=== PATIENT | male | born 1995 | race African-American/Black ===

== ENCOUNTER 2017-01-20 10:44 | Emergency (ER) | payer OTHER ==
[~2017-01-20] VITALS: Ht 170.2 cm; Wt 72.0 kg
[2017-01-20 10:55] VITALS: BP 132/77; PULSE 75; RESP 16; TEMP 98.6; O2SAT 100
--- NOTE | 2017-01-20 11:07 | PD ---
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 Time Seen by Provider: 10:55 Travel History International Travel<30 days: No Contact w/Intl Traveler<30days: No History of Present Illness HPI [employer] BRING PATIENT A ALCOCER ACT, FAMILY CALLED POLICE CONCERNED ABOUT BEHAVIOR SPECIALLY SINCE NOT TAKING HIS "ANXIETY MEDICATIONS", WHEN POLICE ARRIVED PATIENT MADE COMMENTS ABOUT "JUST SHOOT ME" AND "KILL ME" BROUGHT FOR CLEARANCE [facility] Social History Tobacco Use: No Review of Systems ROS Limitations: Combative, Other: (PATIENT WAS APPARENTLY COMBATIVE AT HOME, THOUGH NOT PRESENTLY BUT HE IS FLANKED BY SEVERAL [employer]) Except as stated in HPI: all other systems reviewed are Neg Physical Exam Narrative GENERAL: SKIN: Warm and dry. HEAD: Atraumatic. Normocephalic. EYES: Pupils equal and round. No scleral icterus. No injection or drainage. ENT: No nasal bleeding or discharge. Mucous membranes pink and moist. NECK: Trachea midline. No JVD. CARDIOVASCULAR: Regular rate and rhythm. RESPIRATORY: No accessory muscle use. Clear to auscultation. Breath sounds equal bilaterally. GASTROINTESTINAL: Abdomen soft, non-tender, nondistended. Hepatic and splenic margins not palpable. MUSCULOSKELETAL: Extremities without clubbing, cyanosis, or edema. No obvious deformities. NEUROLOGICAL: Awake and alert. No obvious cranial nerve deficits. Motor grossly within normal limits. Five out of 5 muscle strength in the arms and legs. Normal speech. PSYCHIATRIC: Appropriate mood and affect, CARLYN ACTED BY [employer] Data Data Last Documented VS Vital Signs Date Time Temp Pulse Resp B/P Pulse Ox O2 Delivery O2 Flow Rate FiO2 01/20/17 10:55 98.6 75 16 132/77 100 Orders Complete Blood Count With Diff (01/20/17 10:55) Comprehensive Metabolic Panel (01/20/17 10:55) Electrocardiogram (01/20/17 10:55) Psych Screen (01/20/17 10:55) Drug Screen, Random Urine (01/20/17 10:55) Alcohol (Ethanol) (01/20/17 10:55) Salicylates (Aspirin) (01/20/17 10:55) Tylenol (Acetaminophen) (01/20/17 10:55) Labs Laboratory Tests Test 01/20/17 11:05 White Blood Count 4.5 TH/MM3 Red Blood Count 4.96 MIL/MM3 Hemoglobin 15.3 GM/DL Hematocrit 44.5 % Mean Corpuscular Volume 89.7 FL Mean Corpuscular Hemoglobin 30.7 PG Mean Corpuscular Hemoglobin 34.3 % Concent Red Cell Distribution Width 12.8 % Platelet Count 249 TH/MM3 Mean Platelet Volume 8.3 FL Neutrophils (%) (Auto) 47.5 % Lymphocytes (%) (Auto) 38.7 % Monocytes (%) (Auto) 8.2 % Eosinophils (%) (Auto) 4.5 % Basophils (%) (Auto) 1.1 % Neutrophils # (Auto) 2.1 TH/MM3 Lymphocytes # (Auto) 1.7 TH/MM3 Monocytes # (Auto) 0.4 TH/MM3 Eosinophils # (Auto) 0.2 TH/MM3 Basophils # (Auto) 0.0 TH/MM3 CBC Comment DIFF FINAL Differential Comment Sodium Level 139 MEQ/L Potassium Level 3.5 MEQ/L Chloride Level 103 MEQ/L Carbon Dioxide Level 24.6 MEQ/L Anion Gap 11 MEQ/L Blood Urea Nitrogen 9 MG/DL Creatinine 1.20 MG/DL Estimat Glomerular Filtration 94 ML/MIN Rate Random Glucose 76 MG/DL Calcium Level 9.4 MG/DL Total Bilirubin 0.5 MG/DL Aspartate Amino Transf 24 U/L (AST/SGOT) Alanine Aminotransferase 32 U/L (ALT/SGPT) Alkaline Phosphatase 80 U/L Total Protein 7.7 GM/DL Albumin 4.1 GM/DL Salicylates Level LESS THAN 1.7 MG/DL Acetaminophen Level LESS THAN 2.0 MCG/ML Ethyl Alcohol Level LESS THAN 3 MG/DL MDM Medical Decision Making Medical Screen Exam Complete: Yes Emergency Medical Condition: Yes Medical Record Reviewed: Yes Interpretation(s) NSR @72, SCOTTIE, LVH VS THIN CHEST, NO HYPERACUTE T WAVES, NO STEMI PATTERN Differential Diagnosis MEDICAL CLEARANCE Narrative Course PATIENT HAS NO COMPLAINT, WILL PERFORM CLEARANCE AND WILL CLEAR IF LABS WNL Diagnosis Primary Impression: Medical clearance for psychiatric admission Condition: Stable Tae Armstrong MD January 20, 2017 11:06
[2017-01-20 11:29] LABS: AUTOMATED NEUTROPHIL # 2.1 TH/MM3 (1.8-7.7); BASOPHIL % 1.1 % (0.0-2.0); EOSINOPHIL # 0.2 TH/MM3 (0-0.4); EOSINOPHIL % 4.5 % (0.0-4.0); HEMATOCRIT 44.5 % (39.0-51.0); HEMO FLAGS DIFF FINAL; LYMPH % 38.7 % (9.0-44.0); LYMPHOCYTE # 1.7 TH/MM3 (1.0-4.8); MEAN CELL VOLUME 89.7 FL (80.0-100.0); MEAN CORPUSCULAR HEMOGLOBIN 30.7 PG (27.0-34.0); MEAN CORPUSCULAR HGB CONC 34.3 % (32.0-36.0); MONO % 8.2 % (0.0-8.0); NEUT % 47.5 % (16.0-70.0); PLATELET COUNT 249 TH/MM3 (150-450); RED BLOOD COUNT 4.96 MIL/MM3 (4.50-5.90); RED CELL DISTRIBUTION WIDTH 12.8 % (11.6-17.2); WHITE BLOOD COUNT 4.5 TH/MM3 (4.0-11.0)
[2017-01-20 11:48] LABS: ANION GAP 11 MEQ/L (5-15)
[2017-01-20 11:51] LABS: ACETAMINOPHEN LESS THAN 2.0 MCG/ML (10.0-30.0); ALKALINE PHOSPHATASE 80 U/L (45-117); ALT (GPT) 32 U/L (9-52); AST (GOT) 24 U/L (15-39); BICARBONATE 24.6 MEQ/L (21.0-32.0); BLOOD UREA NITROGEN 9 MG/DL (7-18); CHLORIDE 103 MEQ/L (98-107); GLOMERULAR FILTRATION RATE 94 ML/MIN (>89); POTASSIUM 3.5 MEQ/L (3.5-5.1); SODIUM (NA) 139 MEQ/L (136-145); TOTAL BILIRUBIN ADULT 0.5 MG/DL (0.2-1.0)
[2017-01-20 14:51] LABS: AMPHETAMINE, URINE NEG (NEG); BARBITURATES, URINE NEG (NEG); COCAINE, URINE NEG (NEG)
[2017-01-20 18:18] VITALS: BP 122/66; PULSE 70; RESP 16; O2SAT 100
[2017-01-20 22:00] VITALS: BP 114/57; PULSE 55; RESP 17; TEMP 98.7; O2SAT 100
[2017-01-21 02:33] VITALS: BP 105/54; PULSE 53; RESP 19; TEMP 98; O2SAT 100
[2017-01-21 06:26] VITALS: BP 110/49; PULSE 57; RESP 18; O2SAT 98
[2017-01-21 10:27] VITALS: BP 110/50; PULSE 57; TEMP 98.3
[2017-01-21 10:28] VITALS: BP 110/50; TEMP 98
--- NOTE | 2017-01-21 13:27 | PD.CONS ---
Provisional Diagnosis Admission Date [place] Adjustment disorder with disturbance of conduct History of Present Illness Service Psychiatry Consult Requested By Primary Care Physician No Primary Care Physician HPI The patient is a 21-year-old [place] man, homeless, single, unemployed, with psychiatric history of bipolar disorder, 1 previous psychiatric hospitalization in [facility], he is not on psychotropics, no outpatient care, 1 previous suicidal attempt, cannabis use disorder, no significant medical history , who was brought to the ER on the Zuniga act: "CYNTHIA WILLIAM BRING PATIENT A ZUNIGA ACT, FAMILY CALLED POLICE CONCERNED ABOUT BEHAVIOR SPECIALLY SINCE NOT TAKING HIS "ANXIETY MEDICATIONS", WHEN POLICE ARRIVED PATIENT MADE COMMENTS ABOUT "JUST SHOOT ME" AND "KILL ME" BROUGHT FOR CLEARANCE". On psychiatric evaluation today patient is calm, cooperative. Patient is concrete and seems to have a limited abstract thinking. However, he clarifies that he had a fight with his girlfriend and she wanted to kick he now of her house and called the police. He was furious and he expressed a suicidal statement under this condition. But, now he feels much better, he denies depression, he denies anxiety, he denies clovis, he denies psychosis, he denies suicidal and homicidal ideation. On longitudinal observation no aggressive behavior, no disorganized behavior, no agitation has been reported. Patient is planning to go back to his father's house. He reports daily use of cannabis, occasional use of alcohol. Review of Systems Constitutional: DENIES: Diaphoretic episodes, Fatigue, Fever, Weight gain, Weight loss, Chills, Dizziness, Change in appetite, Night Sweats Endocrine: DENIES: Heat/cold intolerance, Polydipsia, Polyuria, Polyphagia Eyes: DENIES: Blurred vision, Diplopia, Eye inflammation, Eye pain, Vision loss , Photosensitivity, Double Vision Ears, nose, mouth, throat: DENIES: Tinnitus, Hearing loss, Vertigo, Nasal discharge, Oral lesions, Throat pain, Hoarseness, Ear Pain, Running Nose, Epistaxis, Sinus Pain, Toothache, Odynophagia Respiratory: DENIES: Apneas, Cough, Snoring, Wheezing, Hemoptysis, Sputum production, Shortness of breath Cardiovascular: DENIES: Chest pain, Palpitations, Syncope, Dyspnea on Exertion , PND, Lower Extremity Edema, Orthopnea, Claudication Gastrointestinal: DENIES: Abdominal pain, Black stools, Bloody stools, Constipation, Diarrhea, Nausea, Vomiting, Difficulty Swallowing, Anorexia Genitourinary: DENIES: Sexual dysfunction, Urinary frequency, Urinary incontinence, Urgency, Hematuria, Dysuria, Nocturia, Penile Discharge, Testicular Pain, Testicular Swelling Musculoskeletal: DENIES: Joint pain, Muscle aches, Stiffness, Joint Swelling, Back pain, Neck pain Integumentary: DENIES: Abnormal pigmentation, Nail changes, Pruritus, Rash Hematologic/lymphatic: DENIES: Bruising, Lymphadenopathy Immunologic/allergic: DENIES: Eczema, Urticaria Neurologic: DENIES: Abnormal gait, Headache, Localized weakness, Paresthesias, Seizures, Speech Problems, Tremor, Poor Balance Psychiatric: DENIES: Anxiety, Confusion, Mood changes, Depression, Hallucinations, Agitation, Suicidal Ideation, Homicidal Ideation, Delusions Past Family Social History Family History Patient denies psychiatric family history Social History Patient was born and raised in [place], he was living with his girlfriend, but he is now homeless, unemployed, highest level of education is high school Patient's Strengths (min. 2) Verbal communication Physical Exam Physical exam, ideas, no withdrawal, no stiffness, no tremors, no psychomotor agitation or retardation Vital Signs Vital Signs Date Time Temp Pulse Resp B/P Pulse Ox O2 Delivery O2 Flow Rate FiO2 01/21/17 10:28 98.0 110/50 98 01/21/17 10:27 57 Room Air 01/21/17 06:26 18 Mental Status Examination Appearance -Americans young man, fair hygiene, disheveled, calm and cooperative Speech: Unremarkable Orientation: x3 Memory: Unremarkable Thought Process: Logical, Other (concrete) Thought Content: Unremarkable Hallucination Type: None Suicidal Ideation: No Previous Suicide Attempts: No Homicidal Ideation: No Previous Homicide Attempts: No Insight: Good Affect: Good Mood: Appropriate Motor Activity: Normal gait Assessment & Plan Problem List: (1) Adjustment disorder with disturbance of conduct Assessment & Plan: The patient does not present any objective or subjective symptomatology of depression, anxiety, clovis or psychosis. Patient denies suicidal or homicidal ideation, he denies visual and auditory hallucinations. Recent suicidal statements is to be secondary to frustration and anger and no to a primary psychiatric condition decompensation. 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 He does not meet criteria for psychiatric admission at this moment. Extensive psychoeducation, supportive motivation provided. Zuniga act will be lifted. ICD Code: F43.24 Assessment & Plan Estimated LOS: days Seth Segura MD January 21, 2017 13:27
--- NOTE | 2017-01-21 22:00 | EKG ---
Date Performed: 01/20/2017 Time Performed: 11:02:15 PTAGE: 21 years EKG: Sinus rhythm ST ELEVATION CONSISTENT WITH INJURY, PERICARDITIS, OR EARLY REPOLARIZATION ABNORMAL ECG NO PREVIOUS TRACING DOCTOR: Brandon Arteaga Interpretating Date/Time 01/21/2017 21:59:28
== END 2017-01-21 10:29 | disposition home or self-care (01) ==
LOC: NEPE 10:44 → NEPJ 01-21 10:29
DX: Z02.89 Encounter for other administrative examinations (principal); F43.24 Adjustment disorder with disturbance of conduct; R94.31 Abnormal electrocardiogram [ECG] [EKG]
CPT/HCPCS: 80053; 80307; 85025; 93005